=== PATIENT | male | born 1970 | race Caucasian/White ===

== ENCOUNTER → 2020-07-21 | Outpatient (CLI) | payer OTHER ==
--- NOTE | 2020-07-21 10:50 | KCIC ---
EXAM: CT coronary artery calcium screening; radiologist over read. HISTORY: Cardiovascular screening. Family history of heart disease. Hypertension. TECHNIQUE: Computed tomographic images of the chest were obtained without contrast. Multiplanar refor matting was performed. *One or more of the following individualized dose reduction techniques were utilized for this examina tion: 1. Automated exposure control. 2. Adjustment of the mA and/or kV according to patient size. 3. Use of iterative reconstruction technique. COMPARISON: None. FINDINGS: The heart is mildly enlarged. Visualized aorta is normal in caliber. There is no lymphadeno nisreen. There is calcified atherosclerotic plaque within the coronary arteries. There is no infiltrate , pleural effusion or pneumothorax. There is no suspicious pulmonary nodule. There is no acute findin g involving the osseous structures or upper abdomen. Coronary artery calcium score: Left main artery - 17.4 Left anterior descending - 192.5 Left circumflex - 516.7 Right coronary artery - 186.3 TOTAL = 912.9 IMPRESSION: 1. Coronary artery calcium score of 912.9. This is consistent with severe atherosclerotic plaque and high cardia vascular disease risk. 2. No incidental thoracic finding. Electronically signed by: Jayde Morton MD (07/21/2020 10:47 AM) [id number]
== END ==
LOC: KCIC CT 08:09
PROVIDERS: ATTEND Family Medicine
DX: Z13.6 Encounter for screening for cardiovascular disorders (principal); I10 Essential (primary) hypertension; Z82.49 Family history of ischemic heart disease and other diseases of the circulatory system
CPT/HCPCS: 75571